=== PATIENT | female | born 1990 | race Two or more races ===

== ENCOUNTER 2017-09-29 14:15 | Emergency (ER) | payer BC, OTHER ==
[~2017-09-29] VITALS: Ht 157.5 cm; Wt 79.4 kg
--- NOTE | 2017-09-29 14:27 | NUR ---
PT AMBULATORY TO ER BED 10. C/O COUGH AND CONGESTION X CHEST WALL PAIN W/ N/V. GOWNED AND PLACED ON MONITOR. STABLE VITALS. NAD NOTED. AWAITNG MD SCHULZ.
--- NOTE | 2017-09-29 14:30 | NUR ---
DR DEAL AT BEDSIDE FOR EVAL.
[2017-09-29] MEDS ORDERED: ONDANSETRON 4 MG TAB.RAPDIS ONE (15:26)
[2017-09-29] MEDS ORDERED: ACETAMINOPHEN ES 500 MG TABLET ONE (15:26)
[2017-09-29] MEDS: ONDANSETRON 4 MG TAB.RAPDIS SL ONE (15:28)
[2017-09-29] MEDS: ACETAMINOPHEN ES 500 MG TABLET PO ONE (15:30)
[2017-09-29 15:51] VITALS: BP 115/70
--- NOTE | 2017-09-29 15:51 | NUR ---
Patient discharged to home in stable condition. Written and verbal after care instructions given. Patient verbalizes understanding of instruction.
== END 2017-09-29 15:53 | disposition home or self-care (01) ==
LOC: ER 14:17
DX: J40 Bronchitis, not specified as acute or chronic (principal); R09.1 Pleurisy
CPT/HCPCS: 71010-TC; A4606; Q0162; Z7610

== ENCOUNTER 2018-10-21 04:55 | Emergency (ER) | payer BC, OTHER ==
[~2018-10-21] VITALS: Ht 157.5 cm; Wt 81.6 kg
--- NOTE | 2018-10-21 05:05 | NUR ---
Pt walked in d/t flu-like symptoms. She is noted to have a temp of 100.2 on admission, coughing occasionally, feels cold but having SOB. Pt reports symptoms started a week ago and have gotten worse today. She is A, O/4, breathing spontaneously on RA, walks with steady gait by herself. Awaiting to be seen and evaluated by Dr. Deng.
--- NOTE | 2018-10-21 05:07 | NUR ---
Dr. Deng at [facility] with [facility].
--- NOTE | 2018-10-21 05:10 | NUR ---
Rapid Influenza swab done; sent to lab. CXR in progress at [facility]
[2018-10-21] MEDS ORDERED: ACETAMINOPHEN ES 500 MG TABLET ONE (05:13)
[2018-10-21] MEDS ORDERED: ACETAMINOPHEN 325 MG TABLET PO ONE (05:30)
[2018-10-21 05:53] VITALS: BP 128/78
--- NOTE | 2018-10-21 05:54 | NUR ---
Patient discharged to home in stable condition. Written and verbal after care instructions given. Patient verbalizes understanding of instruction.
== END 2018-10-21 05:55 | disposition home or self-care (01) ==
LOC: ER 04:58
DX: J06.9 Acute upper respiratory infection, unspecified (principal); F41.9 Anxiety disorder, unspecified; Z90.89 Acquired absence of other organs
CPT/HCPCS: 71045; 87804 ×2; 99284; A4606; Z7610; 87400

== ENCOUNTER 2020-05-14 12:03 | Emergency (ER) | payer BC, OTHER ==
[~2020-05-14] VITALS: Ht 152.4 cm; Wt 79.4 kg
--- NOTE | 2020-05-14 12:07 | NUR ---
BIBA RA 860 "was working-felt lightheaded/dizzy/weak/tingly arms (Left) have not been feeling good since . " to ER bed 3, denies being lightheaded upon arrival in ED. hooked to bp cuff and pox, changed to hosp gown, provided w warm blanket, patient aao X 4, breathing even and unlabored. Dr Queen
[2020-05-14 13:15] VITALS: BP 124/67
--- NOTE | 2020-05-14 13:15 | NUR ---
IV removed. Catheter intact and site benign. Pressure and 4x4 applied to site. No bleeding noted.Patient discharged to home in stable condition. Written and verbal after care instructions given. Patient verbalizes understanding of instruction.
== END 2020-05-14 13:16 | disposition home or self-care (01) ==
LOC: ER 12:09
DX: F45.8 Other somatoform disorders (principal); F41.9 Anxiety disorder, unspecified; Z90.89 Acquired absence of other organs; Z98.890 Other specified postprocedural states
CPT/HCPCS: 71045-TC; 82962-TC